=== PATIENT | female | born 1945 | race Caucasian/White ===

== ENCOUNTER 2023-11-29 02:06 | Inpatient (IN) | payer MEDICARE ==
[2023-11-29 02:52] LABS: Basophils # (A) 0.1 k/uL (0-0.2); Basophils % (A) 1 %; Eosinophils # (A) 0.3 k/uL (0-0.7); Eosinophils % (A) 5 %; HCT 48.2 % (34.0-46.0); HGB 15.1 gm/dL (11.4-16.0); Lymphocytes # (A) 1.2 k/uL (1.0-4.8); Lymphocytes % (A) 20 %; MCHC 31.4 g/dL (31.0-37.0); MCV 95.7 fL (80.0-100.0); Mean Platelet Volume 8.2; Monocytes # (A) 0.5 k/uL (0-1.0); Monocytes % (A) 8 %; Neutrophils % (A) 64 %; Platelet Count 245 k/uL (150-450); RBC 5.03 m/uL (3.80-5.40); RDW 12.8 % (11.5-15.5); WBC 6.2 k/uL (3.8-10.6)
[2023-11-29 02:56] LABS: ALT 12 U/L (4-34); AST 26 U/L (14-36); African American GFR (CKD) >90 (>60 ml/min/1.73 sqM); Albumin 4.5 g/dL (3.5-5.0); Alkaline Phosphatase 80 U/L (38-126); Anion Gap 8 mmol/L; Blood Urea Nitrogen 25 mg/dL (7-17); Calcium 10.2 mg/dL (8.4-10.2); Carbon Dioxide 24 mmol/L (22-30); Chloride 111 mmol/L (98-107); Glucose 112 mg/dL (74-99); Magnesium 2.2 mg/dL (1.6-2.3); Non-African American GFR(CKD) 83 (>60 ml/min/1.73 sqM); Partial Thromboplastin Time 22.4 sec (22.0-30.0); Potassium 3.9 mmol/L (3.5-5.1); Prothrombin Time 10.6 sec (10.0-12.5); Sodium 143 mmol/L (137-145); Total Bilirubin 0.6 mg/dL (0.2-1.3); Total Protein 7.6 g/dL (6.3-8.2)
--- NOTE | 2023-11-29 03:34 | ED ---
General Adult HPI - General Chief complaint: Chest Pain Stated complaint: Jaw pain, chest pain Time Seen by Provider: 11/29/23 02:13 Source: patient, family, RN notes reviewed, old records reviewed Mode of arrival: ambulatory Limitations: no limitations - History of Present Illness Initial comments: 78 year-old female presenting with upper chest pain and troponin. Patient denies associated dyspnea, no vomiting or diaphoresis. Patient states that she has no prior history of CAD. She states she has felt in the past that she has had intermittent episodes of atrial fibrillation. relieved with Valsalva. - Related Data Allergies Allergy/AdvReac Type Severity Reaction Status Date / Time No Known Allergies Allergy Verified 11/29/23 02:12 Review of Systems ROS Statement: Those systems with pertinent positive or pertinent negative responses have been documented in the HPI. ROS Other: All systems not noted in ROS Statement are negative. Past Medical History Past Medical History: Cancer, Hypertension Past Surgical History: Appendectomy, Bowel Resection, Joint Replacement Additional Past Surgical History / Comment(s): mastectomy colectomy General Exam Limitations: no limitations General appearance: alert, in no apparent distress Head exam: Present: atraumatic, normocephalic Eye exam: Present: normal appearance, PERRL Neck exam: Present: normal inspection. Absent: tenderness, meningismus Respiratory exam: Present: normal lung sounds bilaterally. Absent: respiratory distress, wheezes Cardiovascular Exam: Present: tachycardia, irregular rhythm GI/Abdominal exam: Present: soft. Absent: distended, tenderness Extremities exam: Present: normal inspection, normal capillary refill. Absent: pedal edema, calf tenderness Neurological exam: Present: alert, oriented X3, CN II-XII intact. Absent: motor sensory deficit Psychiatric exam: Present: normal affect, normal mood Skin exam: Present: warm, dry, intact Course Vital Signs 11/29/23 11/29/23 11/29/23 02:09 02:26 03:29 Temperature 97.7 F Pulse Rate 78 131 H 65 Respiratory 20 18 18 Rate Blood Pressure 153/77 153/81 162/93 O2 Sat by Pulse 97 96 96 Oximetry 11/29/23 04:52 Temperature Pulse Rate 58 L Respiratory 18 Rate Blood Pressure 153/82 O2 Sat by Pulse 96 Oximetry Medical Decision Making - Medical Decision Making Was pt. sent in by a medical professional or institution (, PA, MARKETING ASSISTANT MANAGER, urgent care, hospital, or long-term...) When possible be specific @ -No Did you speak to anyone other than the patient for history (EMS, parent, family, police, friend...)? What history was obtained from this source @ -No Did you review nursing and triage notes (agree or disagree)? Why? @ -I reviewed and agree with nursing and triage notes Were old charts reviewed (outside hosp., previous admission, EMS record, old EKG, old radiological studies, urgent care reports/EKG's, long-term records)? Report findings @ -No old charts were reviewed Differential Chest Pain: Stable Angina, Unstable Angina, STEMI, NSTEMI Aortic Dissection, Pneumothorax, Musculoskeletal, Esophageal Spasm GERD, Cholecystitis, Pancreatitis, Zoster, this is not meant to be an all-inclusive list. EKG interpreted by me (3pts min.). @ -Initial EKG shows atrial fibrillation with RVR, right bundle branch block, no ST segment elevation, ventricular rate of 126, QRS duration 132, QTc 380 Repeat EKG at 0323, right bundle branch block, sinus rhythm, ventricular rate of 63, GA interval 181, QRS duration 136, QTc [address] segment elevation. X-rays interpreted by me (1pt min.). @ -Chest x-ray negative for acute cardiopulmonary findings CT interpreted by me (1pt min.). @ -None done U/S interpreted by me (1pt. min.). @ -None done What testing was considered but not performed or refused? (CT, X-rays, U/S, labs)? Why? @ -None What meds were considered but not given or refused? Why? @ -None Did you discuss the management of the patient with other professionals (professionals i.e. , PA, MARKETING ASSISTANT MANAGER, lab, RT, psych nurse, social work lecturer, trial lawyer, teacher, workplace rehabilitation officer, case management coordinator)? Give summary @EM Was smoking cessation discussed for >3mins.? @ -No Was critical care preformed (if so, how long)? @ yes 35 min Were there social determinants of health that impacted care today? How? (Homelessness, low income, unemployed, alcoholism, drug addiction, transportation, low edu. Level, literacy, decrease access to med. care, intermediate, rehab)? @ -No Was there de-escalation of care discussed even if they declined (Discuss DNR or withdrawal of care, Hospice)? DNR status @ -No What co-morbidities impacted this encounter? (DM, HTN, Smoking, COPD, CAD, Cancer, CVA, ARF, Chemo, Hep., AIDS, mental health diagnosis, sleep apnea, morbi d obesity)? @ -Hypertension Was patient admitted / discharged? Hospital course, mention meds given and route, prescriptions, significant lab abnormalities, going to OR and other pertinent info. @ -78-year-old female presenting with upper chest pain and jaw pain. Patient is noted to be in atrial fibrillation with rapid ventricular response. Workup including CBC, CMP and initial troponin is negative. Patient does convert into sinus rhythm and symptoms completely resolved. She will be observed on telemetry with serial cardiac enzymes and cardiology consultation. Undiagnosed new problem with uncertain prognosis? @ -No Drug Therapy requiring intensive monitoring for toxicity (Heparin, Nitro, Insulin, Cardizem)? @ -No Were any procedures done? @ -No Diagnosis/symptom? @Chest pain, new onset atrial fibrillation Acute, or Chronic, or Acute on Chronic? @ -Acute Uncomplicated (without systemic symptoms) or Complicated (systemic symptoms)? @ -Default Side effects of treatment? @ -No Exacerbation, Progression, or Severe Exacerbation? @ -No Poses a threat to life or bodily function? How? (Chest pain, [place], [place], pneumonia, PE, COPD, DKA, ARF, appy, cholecystitis, CVA, Diverticulitis, Homicidal, Suicidal, threat to staff... and all critical care pts) @Yes, chest pain, arrhythmia - Lab Data Result diagrams: 11/29/23 02:29 11/29/23 02:29 Lab Results 11/29/23 11/29/23 11/29/23 Range/Units 02:29 02:29 02:29 WBC 6.2 (3.8-10.6) k/uL RBC 5.03 (3.80-5.40) m/uL Hgb 15.1 (11.4-16.0) gm/dL Hct 48.2 H (34.0-46.0) % MCV 95.7 (80.0-100.0) fL MCH 30.0 (25.0-35.0) pg MCHC 31.4 (31.0-37.0) g/dL RDW 12.8 (11.5-15.5) % Plt Count 245 (150-450) k/uL MPV 8.2 Neutrophils % 64 % Lymphocytes % 20 % Monocytes % 8 % Eosinophils % 5 % Basophils % 1 % Neutrophils # 4.0 (1.3-7.7) k/uL Lymphocytes # 1.2 (1.0-4.8) k/uL Monocytes # 0.5 (0-1.0) k/uL Eosinophils # 0.3 (0-0.7) k/uL Basophils # 0.1 (0-0.2) k/uL PT 10.6 (10.0-12.5) sec INR 1.0 (<1.2) APTT 22.4 (22.0-30.0) sec Sodium 143 (137-145) mmol/L Potassium 3.9 (3.5-5.1) mmol/L Chloride 111 H (98-107) mmol/L Carbon Dioxide 24 (22-30) mmol/L Anion Gap 8 mmol/L BUN 25 H (7-17) mg/dL Creatinine 0.69 (0.52-1.04) mg/dL Est GFR (CKD-EPI)AfAm >90 (>60 ml/min/1.73 sqM) Est GFR (CKD-EPI)NonAf 83 (>60 ml/min/1.73 sqM) Glucose 112 H (74-99) mg/dL Calcium 10.2 (8.4-10.2) mg/dL Magnesium 2.2 (1.6-2.3) mg/dL Total Bilirubin 0.6 (0.2-1.3) mg/dL AST 26 (14-36) U/L ALT 12 (4-34) U/L Alkaline Phosphatase 80 (38-126) U/L Troponin I (0.000-0.034) ng/mL Total Protein 7.6 (6.3-8.2) g/dL Albumin 4.5 (3.5-5.0) g/dL TSH 6.450 H (0.465-4.680) mIU/L 11/29/23 Range/Units 02:29 WBC (3.8-10.6) k/uL RBC (3.80-5.40) m/uL Hgb (11.4-16.0) gm/dL Hct (34.0-46.0) % MCV (80.0-100.0) fL MCH (25.0-35.0) pg MCHC (31.0-37.0) g/dL RDW (11.5-15.5) % Plt Count (150-450) k/uL MPV Neutrophils % % Lymphocytes % % Monocytes % % Eosinophils % % Basophils % % Neutrophils # (1.3-7.7) k/uL Lymphocytes # (1.0-4.8) k/uL Monocytes # (0-1.0) k/uL Eosinophils # (0-0.7) k/uL Basophils # (0-0.2) k/uL PT (10.0-12.5) sec INR (<1.2) APTT (22.0-30.0) sec Sodium (137-145) mmol/L Potassium (3.5-5.1) mmol/L Chloride (98-107) mmol/L Carbon Dioxide (22-30) mmol/L Anion Gap mmol/L BUN (7-17) mg/dL Creatinine (0.52-1.04) mg/dL Est GFR (CKD-EPI)AfAm (>60 ml/min/1.73 sqM) Est GFR (CKD-EPI)NonAf (>60 ml/min/1.73 sqM) Glucose (74-99) mg/dL Calcium (8.4-10.2) mg/dL Magnesium (1.6-2.3) mg/dL Total Bilirubin (0.2-1.3) mg/dL AST (14-36) U/L ALT (4-34) U/L Alkaline Phosphatase (38-126) U/L Troponin I <0.012 (0.000-0.034) ng/mL Total Protein (6.3-8.2) g/dL Albumin (3.5-5.0) g/dL TSH (0.465-4.680) mIU/L Critical Care Time Critical Care Time: Yes Total Critical Care Time: 35 Disposition Clinical Impression: Chest pain, Atrial fibrillation Disposition: ADMITTED IP TO THIS [facility] Condition: Stable Is patient prescribed a controlled substance at d/c from ED?: No Referrals: Carlos Rosas MD [Primary Care Provider] - 1-2 days Time of Disposition: 04:57
[2023-11-29] MEDS: DILTIAZEM DRIP BOLUS FROM BAG 1 MG SOLN IV ONE (04:12)
[2023-11-29] MEDS: DILTIAZEM 125 MG in SODIUM CHLORIDE 0.9% 100 ML IV SCH (04:13)
[2023-11-29] MEDS ORDERED: NALOXONE 0.4 MG/ML 1 ML VIAL IV PRN (04:53)
--- NOTE | 2023-11-29 05:38 | XR ---
EXAMINATION TYPE: XR chest 2V DATE OF EXAM: 11/29/2023 COMPARISON: NONE HISTORY: Chest pain TECHNIQUE: Frontal and lateral views of the chest are obtained. FINDINGS: There is no focal air space opacity, pleural effusion, or pneumothorax seen. Mild cardiome mary is seen. The osseous structures are intact. IMPRESSION: Mild cardiomegaly without acute pulmonary process.
[2023-11-29] MEDS: ASPIRIN 325 MG TAB PO STA ×2 (05:53→09:51)
--- NOTE | 2023-11-29 07:23 | P.HPIM ---
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 Patient blood pressure has been well-controlled lately she had history of mild arrhythmia never been diagnosed with A-fib she had mostly PVCs and PACs. She woke up around 1:00 midnight complaining of jaw pain discomfort in quite the palpitation with typical angina with heaviness and discomfort slight shortness of breath. Her drove her to the emergency department [facility] where was seen and evaluated continue having the tightness and discomfort first EKG showed partial bundle branch block with ST depression and T inversion in lateral lead shortly after her EKG showed A-fib with RVR pulse rate running around 130 beats per minutes was diagnosed with A-fib. Started on Cardizem drip but end up converting back to sinus rhythm very fast. Patient be starting on anticoagulat ion but she had atypical angina with her A-fib which is concerning will be seen cardiology and probably talk about doing heart cath before going any further for cardiac testing. Also patient noted to have quite a bit of palpitation and arrhythmia symptoms improved with Valsalva in the past successfully. Patient brought to the emergency department by her at the time was seen secure troponin was negative EKG initially showed no typical findings repeat EKG showed A-fib with RVR with pulse running around 130 bpm. Patient was started on Cardizem drip and heparin drip will admit patient to the hospital, she will be seeing cardiology continue Cardizem drip plan to do an echocardiogram keep patient n.p.o. for possible intervention CK troponin x 3 will be done. REVIEW OF SYSTEMS: CONSTITUTIONAL: Well-developed no acute respiratory distress. EYES: No icterus sclerae, no conjunctivitis. EARS, NOSE, MOUTH, THROAT, and FACE: No sore throat, lymphadenopathy, carotid bruits or deformity. RESPIRATORY: Slight shortness of breath no cough or wheezes. CARDIOVASCULAR: Positive PND orthopnea palpitation and angina. GASTROINTESTINAL: No Abd pain, Nausea or vomiting, no Diarrhea or constipation, No GI Bleed, no distention or masses. GENITOURINARY: Negative for Hematuria or UTI, no kidney stones. INTEGUMENT/BREAST: Negative for any muscular injury with mild osteoarthritis.. HEMATOLOGIC/LYMPHATIC: Negative for bleed or purpura. MUSCULOSKELTAL: Negative for Myalgia or arthralgia. NEURLOGICAL: No LOC, Sz or syncope, blurred vision dizziness or abnormality.. BEHAVIORAL/PSYCH: Negative. ENDOCRINE: Negative. PHYSICAL EXAMINATION: General Appearance: Alert, cooperative, no distress, appears stated age. Neck HEENT: Supple, no lymphadenopathy, no thyroid enlargement, no carotid bruits. Lungs: Clear to auscultation without crackles or wheezes no rhonchi, no deformity. Chest Wall: Decreased expansion with deep inspiration no tenderness and no deformity was found on exam, no costochondral pain or discomfort. Heart: Irregular rate and rhythm, S1, S2 normal, no murmur, rub or gallop. Back: Symmetric, no curvature, ROM normal, no CVA tenderness. Abdomen: Soft, non-tender, bowel sounds active all four quadrants, no masses, no organomegaly. Extremities: Extremities normal, atraumatic, no cyanosis or edema. Pulses: 2+ and symmetric. Skin: Skin color, texture, tugor normal, no rashes or lesions. Neurologic: Alert oriented x3 cranial nerves II through XII intact, no motor deficit, no abnormal balance or gait. ASSESSMENT AND PLAN: _Atypical chest pain: Patient was admitted to the hospital, consult cardiology, repeat EKG, troponin x 3 do not further testing including echocardiogram and probably stress test to be done. _New onset of A-fib with RVR: Pulse rate finally 126 bpm quite irregular patient will remain on Cardizem and probably add metoprolol she should be started on anticoagulation with Lovenox 1 mg/kg twice a day till seen cardiology she need to be switched to Eliquis 5 mg twice a day, will continue watching pulse rate. _Hypertension: Has been doing well on carvedilol will resume medication. _Hyperlipidemia: Lipid panel be done fasting and initiate statin for 90 LDL above 100. _Hyperglycemia: Hyperglycemia with no show diagnosed with diabetes A1c good underlapped continue Accu-Cheks sliding scales coverage. _Hypothyroidism: Mildly elevated TSH repeat free T4 patient thyroid testing has been normal less than 6 months ago. _History of breast cancer: Full remission doing very well no complication. _History of melanoma: Has been in remission as well she still seen at [facility] once a year. _GI prophylaxis: Will add Pepcid 20 mg daily. _DVT prophylaxis: Patient will be on anticoagulation treatment for A-fib which will be DVT prophylaxis as well. CODE STATUS: Full code. Admit patient to the inpatient status for 1-2 night. Past Medical History Past Medical History: Cancer, Hypertension Past Surgical History: Appendectomy, Bowel Resection, Joint Replacement Additional Past Surgical History / Comment(s): mastectomy colectomy Medications and Allergies Allergies Allergy/AdvReac Type Severity Reaction Status Date / Time No Known Allergies Allergy Verified 11/29/23 02:12 Physical Exam Vitals: Vital Signs Temp Pulse Resp BP Pulse Ox 11/29/23 04:52 58 L 18 153/82 96 11/29/23 03:29 65 18 162/93 96 11/29/23 02:26 131 H 18 153/81 96 11/29/23 02:09 97.7 F 78 20 153/77 97 Intake and Output 11/28/23 11/28/23 11/29/23 14:59 22:59 06:59 Other: Weight 79.379 kg Results CBC & Chem 7: 11/29/23 02:29 11/29/23 02:29 Labs: Abnormal Lab Results - Last 24 Hours (Table) 11/29/23 11/29/23 Range/Units 02:29 02:29 Hct 48.2 H (34.0-46.0) % Chloride 111 H (98-107) mmol/L BUN 25 H (7-17) mg/dL Glucose 112 H (74-99) mg/dL TSH 6.450 H (0.465-4.680) mIU/L
[2023-11-29 08:22] LABS: Basophils # (A) 0.1 k/uL (0-0.2); Basophils % (A) 1 %; Eosinophils # (A) 0.2 k/uL (0-0.7); Eosinophils % (A) 3 %; HCT 41.2 % (34.0-46.0); HGB 13.5 gm/dL (11.4-16.0); Lymphocytes # (A) 1.1 k/uL (1.0-4.8); Lymphocytes % (A) 23 %; MCH 31.3 pg (25.0-35.0); MCHC 32.7 g/dL (31.0-37.0); MCV 95.6 fL (80.0-100.0); Mean Platelet Volume 8.1; Monocytes # (A) 0.4 k/uL (0-1.0); Monocytes % (A) 8 %; Neutrophils % (A) 63 %; Platelet Count 227 k/uL (150-450); RBC 4.31 m/uL (3.80-5.40); RDW 12.5 % (11.5-15.5); WBC 4.8 k/uL (3.8-10.6)
[2023-11-29 08:38] LABS: Partial Thromboplastin Time 22.3 sec (22.0-30.0); Prothrombin Time 10.9 sec (10.0-12.5)
[2023-11-29] MEDS: HEPARIN SODIUM 1,000 UN/ML (10ML VL) IV ONE (09:05)
[2023-11-29] MEDS: HEPARIN SOD,PORK IN 0.45% NACL 25,000 UNIT in 0.45% NACL 1 250ML.BAG IV SCH (09:05)
[2023-11-29] MEDS ORDERED: NITROGLYCERIN SL TABS 0.4 MG TAB SUBLINGUAL PRN ×2 (09:40→15:12)
[2023-11-29] MEDS ORDERED: ALPRAZolam 0.5 MG TAB PO PRN (09:40)
[2023-11-29] MEDS ORDERED: ALPRAZolam 0.25 MG TAB PO PRN (09:40)
[2023-11-29] MEDS: ATORVASTATIN 80 MG TAB PO STA (10:33)
[2023-11-29] MEDS: SODIUM CHLORIDE 0.9% 1,000 ML IV SCH (10:35)
--- NOTE | 2023-11-29 11:02 | P.CRDCN ---
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 She has a past medical history of hypertension. She states that she thinks that she may have been in atrial fibrillation at 1 point but she then followed up with her PCP and had 24-hour monitor placed and no identified atrial fibrillation was found. Patient complains of jaw and neck upper chest pain that woke her from sleep. She states it was sharp and severe. She denies having any shortness of breath, no dizziness or lightheadedness, no syncopal episodes. Patient is seen today in the emergency center waiting for bed on the cardiac stepdown unit. Patient has been started on Cardizem drip. EKG right bundle branch block, T wave inversions leads III and aVF. #2 atrial fibrillation Chest x-ray: Mild cardiomegaly without acute pulmonary process. Laboratory studies: CBC, INR unremarkable. Troponin negative x 2. Potassium 3.9, BUN 25 and creatinine 0.69. TSH 6.45. Home cardiac medications: Coreg 6.25 mg twice daily Review Of Systems: At the time of my exam: CONSTITUTIONAL: Denies fever or chills. HEENT: Denies blurred vision, vision changes, or eye pain. Denies hemoptysis CARDIOVASCULAR: Denies chest pain. Denies orthopnea. Denies PND. Denies palpitations RESPIRATORY: Denies shortness of breath. GASTROINTESTINAL: Denies abdominal pain. Denies nausea or vomiting. HEMATOLOGIC: Denies bleeding disorders. GENITOURINARY: Denies any blood in urine. SKIN: Denies pruitis. Denies rash. Physical examination: Gen: This is an 78-year-old female in no acute distress VS: reviewed, blood pressure 152/84, heart rate 58, pulse ox 98% on room air. HEENT: Head is atraumatic, normocephalic. Pupils equal, round. Sclerae is anicteric. NECK: Supple. No JVD. LUNGS: Clear to auscultation. No wheezes or rhonchi. No intercostal retractions. HEART: Regular rate and rhythm. ABDOMEN: Soft No tenderness. EXTREMITIES: No pedal edema. No calf tenderness. NEUROLOGICAL: Patient is awake, alert and oriented x3. Assessment: Chest pain concerning for unstable angina Hypertension New onset A-fib with RVR, currently in sinus rhythm Plan: Resume patient's home cardiac medications Start patient on heparin drip Discontinue Cardizem drip Schedule patient for cardiac catheterization today with Dr. Garcia Obtain 2-D echocardiogram and Doppler study to assess cardiac structure and f unction Further recommendations to follow based upon clinical course Thank you kindly for this consultation. Nurse practitioner note has been reviewed, I agree with documented findings and plan of care. Patient was seen and examined. Past Medical History Past Medical History: Cancer, Hypertension Past Surgical History: Appendectomy, Bowel Resection, Joint Replacement Additional Past Surgical History / Comment(s): mastectomy colectomy Medications and Allergies Home Medications Medication Instructions Recorded Confirmed Type Ergocalciferol (Vitamin D2) 1,250 mcg PO Q14D 11/29/23 11/29/23 History [Drisdol (50,000 Iu)] carvediloL [Coreg] 6.25 mg PO BID 11/29/23 11/29/23 History Allergies Allergy/AdvReac Type Severity Reaction Status Date / Time No Known Allergies Allergy Verified 11/29/23 07:39 Physical Exam Vitals: Vital Signs Temp Pulse Resp BP Pulse Ox 11/29/23 04:52 58 L 18 153/82 96 11/29/23 03:29 65 18 162/93 96 11/29/23 02:26 131 H 18 153/81 96 11/29/23 02:09 97.7 F 78 20 153/77 97 Intake and Output 11/28/23 11/29/23 11/29/23 22:59 06:59 14:59 Other: Weight 79.379 kg Results 11/29/23 08:14 11/29/23 02:29 Cardiac Enzymes 11/29/23 11/29/23 Range/Units 02:29 02:29 AST 26 (14-36) U/L Troponin I <0.012 (0.000-0.034) ng/mL Coagulation 11/29/23 Range/Units 02:29 PT 10.6 (10.0-12.5) sec APTT 22.4 (22.0-30.0) sec CBC 11/29/23 Range/Units 02:29 WBC 6.2 (3.8-10.6) k/uL RBC 5.03 (3.80-5.40) m/uL Hgb 15.1 (11.4-16.0) gm/dL Hct 48.2 H (34.0-46.0) % Plt Count 245 (150-450) k/uL Comprehensive Metabolic Panel 11/29/23 Range/Units 02:29 Sodium 143 (137-145) mmol/L Potassium 3.9 (3.5-5.1) mmol/L Chloride 111 H (98-107) mmol/L Carbon Dioxide 24 (22-30) mmol/L BUN 25 H (7-17) mg/dL Creatinine 0.69 (0.52-1.04) mg/dL Glucose 112 H (74-99) mg/dL Calcium 10.2 (8.4-10.2) mg/dL AST 26 (14-36) U/L ALT 12 (4-34) U/L Alkaline Phosphatase 80 (38-126) U/L Total Protein 7.6 (6.3-8.2) g/dL Albumin 4.5 (3.5-5.0) g/dL Current Medications Generic Name Dose Route Start Last Admin Trade Name Freq PRN Reason Stop Dose Admin Acetaminophen 650 mg 11/29/23 04:53 Acetaminophen Tab 325 Mg Tab PO Q6HR PRN Mild Pain or Fever > 100.5 Heparin Sodium (Porcine) 0 unit 11/29/23 07:52 Heparin Sodium 1,000 Un/Ml (10ml Vl) IV PER PROTOCOL PRN Low PTT Protocol Diltiazem HCl 125 mg/ Sodium 125 mls @ 5 mls/hr 11/29/23 02:45 11/29/23 04:13 Chloride IV Not Given .Q24H JONATHAN 5 MG/HR Heparin Sodium/Sodium Chloride 250 mls @ 9.525 mls/hr 11/29/23 08:00 25,000 unit/ Sodium Chloride IV .Q24H JONATHAN Protocol 12 UNITS/KG/HR Naloxone HCl 0.2 mg 11/29/23 04:53 Naloxone 0.4 Mg/Ml 1 Ml Vial IV Q2M PRN Opioid Reversal Intake and Output 11/28/23 11/29/23 11/29/23 22:59 06:59 14:59 Other: Weight 79.379 kg 11/29/23 02:29 11/29/23 02:29
[2023-11-29] MEDS: carvediloL 6.25 MG TAB PO SCH (12:26)
[2023-11-29] MEDS ORDERED: HEPARIN SODIUM 1,000 UN/ML (10ML VL) ONE (13:42)
[2023-11-29] MEDS ORDERED: VERAPAMIL 2.5 MG/ML 2 ML AMP ONE (13:43)
[2023-11-29] MEDS: IV FLUID CONTINUATION 950 ML IV ONE (14:08)
[2023-11-29] MEDS: MIDAZOLAM 2 MG/2 ML VIAL IVP ONE (14:24)
[2023-11-29] MEDS: LIDOCAINE 1% INJ 10MG/ML (20 ML MDV) SQ ONE (14:37)
[2023-11-29] MEDS: VERAPAMIL SYRINGE (5 MG/10 ML) INTRAARTER ONE (14:38)
[2023-11-29] MEDS: HEPARIN SODIUM 1,000 UN/ML (10ML VL) IVP ONE (14:39)
[2023-11-29] MEDS ORDERED: CLOPIDOGREL 75 MG TAB ONE (14:45)
[2023-11-29] MEDS: CLOPIDOGREL 75 MG TAB PO ONE (14:46)
[2023-11-29] MEDS ORDERED: MORPHINE SULFATE 4 MG/ML SYRINGE ONE ×2 (14:47→15:09)
[2023-11-29] MEDS: MORPHINE SULFATE 4 MG/ML SYRINGE IVP ONE ×2 (14:48→15:12)
[2023-11-29] MEDS ORDERED: ENALAPRILAT 1.25 MG/ML 1 ML VIAL ONE (14:51)
[2023-11-29] MEDS ORDERED: hydrALAZINE HCL 20 MG/ML 1 ML VIAL ONE (14:51)
[2023-11-29] MEDS: ENALAPRILAT 1.25 MG/ML 1 ML VIAL IVP ONE (14:53)
[2023-11-29] MEDS: hydrALAZINE HCL 20 MG/ML 1 ML VIAL IVP ONE (14:53)
[2023-11-29] MEDS: NITROGLYCERIN 1000MCG/10ML SYRINGE INTRACORON ONE (15:02)
[2023-11-29] MEDS: IOPAMIDOL-370 100ML BTL INJ ONE ×2 (15:06→15:08)
[2023-11-29] MEDS ORDERED: NITROGLYCERIN SL TABS 0.4 MG TAB SUBLINGUAL ONE (15:10)
[2023-11-29] MEDS ORDERED: FUROSEMIDE 10 MG/ML 4 ML VIAL ONE (15:10)
[2023-11-29] MEDS ORDERED: RX INFO: IV CONTRAST WAS GIVEN 1 EACH MISC MISCELLANE PRN (15:12)
[2023-11-29] MEDS ORDERED: ATROPINE SULFATE 0.1 MG/ML 10ML SYRINGE IV PRN (15:12)
[2023-11-29] MEDS ORDERED: ZOLPIDEM 5 MG TAB PO PRN (15:12)
[2023-11-29] MEDS: NITROGLYCERIN SL TABS 0.4 MG TAB SUBLINGUAL ONE (15:12)
[2023-11-29] MEDS: FUROSEMIDE 10 MG/ML 4 ML VIAL IVP ONE (15:12)
--- NOTE | 2023-11-29 15:17 | P.PCN ---
Date of Procedure: 11/29/23 Operative Findings: CARDIAC CATHETERIZATION AND PERCUTANEOUS CORONARY INTERVENTION PERFORMING PHYSICIAN: Arslan Garcia MD, [facility] PROCEDURE PERFORMED: 1. Selective right and left coronary angiogram 2. Left heart catheterization 3. Successful stenting of first diagonal branch using 3.25 x 15 mm Xience DAVIE with an excellent angiographic results with adjunctive use of intravascular ultrasound 4. Ultrasound guided access of the right radial artery INDICATION: Acute non-ST relation myocardial infarction COMPLICATION: None APPROACH: Right radial artery LEVEL OF SEDATION: Moderate with the sedation time off 31 minutes PROCEDURE DESCRIPTION: After obtaining informed consent the patient was brought to the cardiac Animal [facility]ner. The right radial artery was cannulated using micropuncture technique under ultrasound guidance the micropuncture wire passed easily then I placed a 6 Syrian sheath at the right radial artery. After that I gave the patient 2 mg of verapamil intra-arterial. Selective right and left coronary angiogram performed using JR4 and JL 3.5 catheters. Left heart catheterization was performed using the JR4 catheter which crossed the aortic valve. After that I did intervene on the diagonal branch of the LAD. Anticoagulation was initiated using heparin with continuous ACT monitoring. I did engage the left main using JL 3.5 guide. I did wired the diagonal branch using a run-through wire. Intravascular ultrasound was performed and showed a noncalcified lesion appears to be in the range of 3 mm in diameter. I did predilated using 3 mm x 12 mm balloon before I deployed 3.25 x 15 mm stent where the stent was positioned under fluoroscopy guidance and deployed under fluoroscopy guidance. The stent was postdilated using 3.5 noncompliant balloon and subsequently 4.0 noncompliant balloon. Final angiogram showed excellent angiographic results. SELECTIVE CORONARY ANGIOGRAM: The right coronary artery: Large-caliber vessel and dominant vessel and appears to be angiographically normal Left main: Is angiographically normal The left circumflex: Large-caliber vessel nondominant vessel and also angiographically normal The left anterior descending artery: Large-caliber vessel. Is angiographically normal with gives rise into a large diagonal branch which has a tight lesion in the midportion HEMODYNAMICS: The LVEDP was about 24 mmHg with no significant gradient across aortic valve CONCLUSION: Severe disease involving a large first diagonal branch. I performed successful PCI with reduction of stenosis from 80% to 0% Elevated left-sided filling pressure POSTPROCEDURE MANAGEMENT: 1. Dual antiplatelet therapy using aspirin and Plavix for at least 12 month 2. Aggressive cholesterol control 3. Follow-up with the patient
[2023-11-29] MEDS: SODIUM CHLORIDE 0.9% 1,000 ML in EMPTY BAG 1 BAG IV SCH (15:59)
[2023-11-29 16:00] VITALS: RESP 16
--- NOTE | 2023-11-29 17:19 | CA ---
Transthoracic Echo Report Name: Catrina Casey Age: 78 Gender: F : 1945 Exam Date: 11/29/2023 15:59 Exam Location: [facility] Ht (in): 66 Wt (lb): 175 Ordering Physician: Xochitl Rodriguez Attending/Referring Phys: [id number], Jennifer Cleat Blanker Deb Lester RDCS Procedure CPT: Indications: LVF Cardiac Hx: stent Technical Quality: Fair Contrast 1: Total Dose (mL): Contrast 2: Total Dose (mL): MEASUREMENTS (Male / Female) Normal Values 2D ECHO LV Diastolic Diameter PLAX 5.6 cm 4.2 - 5.9 / 3.9 - 5.3 cm LV Systolic Diameter PLAX 3.2 cm IVS Diastolic Thickness 1.2 cm 0.6 - 1.0 / 0.6 - 0.9 cm LVPW Diastolic Thickness 1.4 cm 0.6 - 1.0 / 0.6 - 0.9 cm LV Relative Wall Thickness 0.5 RV Internal Dim ED PLAX 3.6 cm LA Systolic Diameter LX 3.5 cm 3.0 - 4.0 / 2.7 - 3.8 cm LV Diastolic Volume MOD 4C 103.9 cm??? LV Systolic Volume MOD 4C 46.2 cm??? LV Ejection Fraction MOD 4C 55.6 % LV Cardiac Index MOD 4C 1575.5 cm???/min???m??? LV Diastolic Length 4C 7.0 cm LV Systolic Length 4C 5.3 cm LV Diastolic Volume MOD 2C 76.5 cm??? LV Systolic Volume MOD 2C 28.1 cm??? LV Ejection Fraction MOD 2C 63.3 % LV Cardiac Index MOD 2C 1320.4 cm???/min???m??? LV Diastolic Length 2C 7.8 cm LV Systolic Length 2C 6.2 cm LA Volume 60.3 cm??? 18 - 58 / 22 - 52 cm??? LA Volume Index 31.0 cm???/m??? 16 - 28 cm???/m??? M-MODE Aortic Root Diameter MM 3.2 cm AV Cusp Separation MM 2.4 cm DOPPLER AV Peak Velocity 166.6 cm/s AV Peak Gradient 11.1 mmHg AI Peak Velocity 390.6 cm/s AI Peak Gradient 61.0 mmHg AI Pressure Half Time 668.6 ms MV Area PHT 2.8 cm??? Mitral E Point Velocity 71.3 cm/s Mitral A Point Velocity 66.9 cm/s Mitral E to A Ratio 1.1 MV Deceleration Time 270.5 ms TR Peak Velocity 209.5 cm/s TR Peak Gradient 17.6 mmHg Right Ventricular Systolic Press 22.6 mmHg FINDINGS Left Ventricle Left ventricular ejection fraction is estimated at 55-60 %. Mildly increased septal wall thickness. Moderately increased posterior wall thickness. Mildly increased left ventricular diastolic diameter. No obvious regional wall motion abnormalities. Right Ventricle Mild right ventricular dilatation. Right ventricular systolic pressure within normal limits. Right Atrium Normal right atrial size. No right atrial thrombus or mass seen. Left Atrium Mildly increased left atrial volume. Mildly increased left atrial area. No left atrial thrombus or mass present. Mitral Valve Structurally normal mitral valve. No evidence for mitral valve prolapse. No mitral stenosis. Trace to mild mitral regurgitation. Aortic Valve Trileaflet aortic valve. No aortic stenosis. Mild aortic regurgitation. Tricuspid Valve Structurally normal tricuspid valve. Trace to mild tricuspid regurgitation. Pulmonic Valve Structurally normal pulmonic valve. Trace pulmonic regurgitation. Pericardium Small pericardial effusion by LV Aorta Normal size aortic root and proximal ascending aorta. CONCLUSIONS Normal LV systolic function Mild aortic regurgitation Previewed by: Dr. Sergey Marie MD (Electronically Signed) Final Date: 29 November 2023 17:18
[2023-11-29] MEDS: MAG HYDROX/AL HYDROX/SIMETH 30 ML CUP PO PRN (20:25)
[2023-11-30] MEDS: HEPARIN SODIUM 1,000 UN/ML (10ML VL) IV PRN (03:47)
[2023-11-30] MEDS ORDERED: HEPARIN SODIUM,PORCINE (1 ML) 2,500 UNIT in SODIUM CHLORIDE 0.9% 250 ML IRRIGATION PRN (07:00)
[2023-11-30] MEDS ORDERED: HEPARIN SODIUM,PORCINE 10,000 UNIT in SODIUM CHLORIDE 0.9% 1,000 ML IRRIGATION PRN (07:00)
[2023-11-30 10:16] LABS: Basophils % (A) 0 %; Eosinophils # (A) 0.1 k/uL (0-0.7); Eosinophils % (A) 2 %; HCT 40.2 % (34.0-46.0); HGB 12.9 gm/dL (11.4-16.0); Lymphocytes # (A) 0.8 k/uL (1.0-4.8); Lymphocytes % (A) 13 %; MCH 30.7 pg (25.0-35.0); MCV 95.9 fL (80.0-100.0); Mean Platelet Volume 7.9; Monocytes # (A) 0.5 k/uL (0-1.0); Monocytes % (A) 8 %; Neutrophils % (A) 76 %; Platelet Count 210 k/uL (150-450); RBC 4.19 m/uL (3.80-5.40); RDW 12.6 % (11.5-15.5); WBC 6.7 k/uL (3.8-10.6)
[2023-11-30] MEDS: ACETAMINOPHEN TAB 325 MG TAB PO PRN (10:16)
[2023-11-30] MEDS: CLOPIDOGREL 75 MG TAB PO SCH (10:17)
[2023-11-30] MEDS: ASPIRIN 81 MG PO SCH (10:17)
[2023-11-30] MEDS: APIXABAN 2.5 MG TABLET PO SCH (10:19)
[2023-11-30 10:22] LABS: INR 1.1 (<1.2); Prothrombin Time 11.7 sec (10.0-12.5)
[2023-11-30 10:51] VITALS: BMI 28.0
[2023-11-30 10:55] LABS: ALT 10 U/L (4-34); AST 26 U/L (14-36); African American GFR (CKD) >90 (>60 ml/min/1.73 sqM); Albumin 3.4 g/dL (3.5-5.0); Alkaline Phosphatase 62 U/L (38-126); Anion Gap 4 mmol/L; Blood Urea Nitrogen 23 mg/dL (7-17); Calcium 8.8 mg/dL (8.4-10.2); Carbon Dioxide 24 mmol/L (22-30); Chloride 110 mmol/L (98-107); Glucose 92 mg/dL (74-99); Non-African American GFR(CKD) 83 (>60 ml/min/1.73 sqM); Potassium 3.6 mmol/L (3.5-5.1); Sodium 138 mmol/L (137-145); Total Bilirubin 0.8 mg/dL (0.2-1.3)
--- NOTE | 2023-11-30 14:12 | P.PN ---
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 She has a past medical history of hypertension. She states that she thinks that she may have been in atrial fibrillation at 1 point but she then followed up with her PCP and had 24-hour monitor placed and no identified atrial fibrillation was found. Patient complains of jaw and neck upper chest pain that woke her from sleep. She states it was sharp and severe. She denies having any shortness of breath, no dizziness or lightheadedness, no syncopal episodes. Patient is seen today in the emergency center waiting for bed on the cardiac stepdown unit. Patient has been started on Cardizem drip. EKG right bundle branch block, T wave inversions leads III and aVF. #2 atrial fibrillation Chest x-ray: Mild cardiomegaly without acute pulmonary process. Laboratory studies: CBC, INR unremarkable. Troponin negative x 2. Potassium 3.9, BUN 25 and creatinine 0.69. TSH 6.45. Home cardiac medications: Coreg 6.25 mg twice daily 11/29 Yesterday, patient underwent cardiac catheterization with Dr. Garcia which revealed severe disease involving a large first diagonal branch status post PCI. Patient has been on a heparin drip transition to oral Eliquis by attending. Echocardiogram reveals normal LV systolic function, mild aortic regurgitation. Blood pressure 121/71, heart rate 59, pulse ox 96% on room air. Repeat blood work reveals BUN 23 creatinine 0.67, hemoglobin 12.9. Physical examination: Gen: This is an 78-year-old female in no acute distress VS: reviewed HEENT: Head is atraumatic, normocephalic. Pupils equal, round. Sclerae is anicteric. LUNGS: Clear to auscultation. No wheezes or rhonchi. No intercostal retr actions. HEART: Regular rate and rhythm. EXTREMITIES: No pedal edema. No calf tenderness. NEUROLOGICAL: Patient is awake, alert and oriented x3. Assessment: Acute non-ST elevated myocardial infarction Hypertension New onset paroxysmal A-fib with RVR, currently in sinus rhythm Plan: Continue current cardiac medications Plan for triple therapy with baby aspirin, Plavix and Eliquis at 2.5 mg twice daily versus the normal dose of 5 mg twice daily Patient is cleared for discharge from cardiology and will follow-up with Dr. Garcia in 1 week. Nurse practitioner note has been reviewed, I agree with documented findings and plan of care. Patient was seen and examined. Objective - Vital Signs Vital signs: Vital Signs Temp 97.8 F 11/29/23 20:15 Pulse 58 L 11/30/23 03:45 Resp 16 11/30/23 03:45 BP 130/72 11/30/23 03:45 Pulse Ox 94 L 11/30/23 03:45 FiO2 Intake & Output 11/29/23 11/30/23 11/30/23 18:59 06:59 18:59 Intake Total 830 178.118 118 Balance 830 178.118 118 Weight 79.379 kg 78.8 kg Intake: IV 650 Intake, IV Titration 178.118 Amount Heparin Sod,Pork in 0.45% 178.118 NaCl 25,000 unit In 0.45 % NaCl 1 250ml.bag @ 12 UNITS/KG/HR 9.525 mls/hr IV .Q24H [facility] Rx#: [id number] Oral 180 118 Other: Voiding Method Toilet # Voids 2 - Labs CBC & Chem 7: 11/30/23 09:50 11/30/23 09:50 Labs: Abnormal Lab Results - Last 24 Hours (Table) 11/29/23 Range/Units 16:32 APTT 114.5 H* (22.0-30.0) sec
[2023-11-30] MEDS: APIXABAN 5 MG TAB PO SCH (15:02)
[2023-11-30 16:35] VITALS: BP 118/66; PULSE 58; TEMP 97.6
[2023-11-30 16:46] LABS: Chol/HDL Ratio 2.05 Ratio; LDL Cholesterol,Calculated 59.3 mg/dL (0.0-131.0)
[2023-11-30] MEDS ORDERED: ATORVASTATIN 80 MG TAB PO SCH (21:00)
--- NOTE | 2023-12-01 06:19 | P.DS ---
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 Patient blood pressure has been well-controlled lately she had history of mild arrhythmia never been diagnosed with A-fib she had mostly PVCs and PACs. She woke up around 1:00 midnight complaining of jaw pain discomfort in quite the palpitation with typical angina with heaviness and discomfort slight shortness of breath. Her drove her to the emergency department [facility] where was seen and evaluated continue having the tightness and discomfort first EKG showed partial bundle branch block with ST depression and T inversion in lateral lead shortly after her EKG showed A-fib with RVR pulse rate running around 130 beats per minutes was diagnosed with A-fib. Started on Cardizem drip but end up converting back to sinus rhythm very fast. Patient be starting on anticoagula tion but she had atypical angina with her A-fib which is concerning will be seen cardiology and probably talk about doing heart cath before going any further for cardiac testing. Also patient noted to have quite a bit of palpitation and arrhythmia symptoms improved with Valsalva in the past successfully. Patient brought to the emergency department by her at the time was seen secure troponin was negative EKG initially showed no typical findings repeat EKG showed A-fib with RVR with pulse running around 130 bpm. Patient was started on Cardizem drip and heparin drip will admit patient to the hospital, she will be seeing cardiology continue Cardizem drip plan to do an echocardiogram keep patient n.p.o. for possible intervention CK troponin x 3 will be done. 11/30/2023: Patient was seen cardiology yesterday with conclusion with all findings as this is non-ST GA specially with a change in EKG however troponin continued to be negative with the significant change she had going to the Engineer/Conductor found to have normal heart function with ejection fraction but she had severe stenosis of the first diagonal coronary artery ended up having angioplasty and stent placement successfully while she is having a procedure during angioplasty she developed to have great clinical angina with chest pain across both side of her chest wall significantly improved after angioplasty done. Patient rested comfortably afterward had no complications overnight medication will change and the patient is doing well today and is okay with cardiology hopefully patient can be discharged home today. REVIEW OF SYSTEMS: CONSTITUTIONAL: Well-developed no acute respiratory distress. EYES: No icterus sclerae, no conjunctivitis. EARS, NOSE, MOUTH, THROAT, and FACE: No sore throat, lymphadenopathy, carotid bruits or deformity. RESPIRATORY: Slight shortness of breath no cough or wheezes. CARDIOVASCULAR: Positive PND orthopnea palpitation and angina. GASTROINTESTINAL: No Abd pain, Nausea or vomiting, no Diarrhea or constipation, No GI Bleed, no distention or masses. GENITOURINARY: Negative for Hematuria or UTI, no kidney stones. INTEGUMENT/BREAST: Negative for any muscular injury with mild osteoarthritis.. HEMATOLOGIC/LYMPHATIC: Negative for bleed or purpura. MUSCULOSKELTAL: Negative for Myalgia or arthralgia. NEURLOGICAL: No LOC, Sz or syncope, blurred vision dizziness or abnormality.. BEHAVIORAL/PSYCH: Negative. ENDOCRINE: Negative. PHYSICAL EXAMINATION: General Appearance: Alert, cooperative, no distress, appears stated age. Neck HEENT: Supple, no lymphadenopathy, no thyroid enlargement, no carotid bruits. Lungs: Clear to auscultation without crackles or wheezes no rhonchi, no deformity. Chest Wall: Decreased expansion with deep inspiration no tenderness and no deformity was found on exam, no costochondral pain or discomfort. Heart: Irregular rate and rhythm, S1, S2 normal, no murmur, rub or gallop. Back: Symmetric, no curvature, ROM normal, no CVA tenderness. Abdomen: Soft, non-tender, bowel sounds active all four quadrants, no masses, no organomegaly. Extremities: Extremities normal, atraumatic, no cyanosis or edema. Pulses: 2+ and symmetric. Skin: Skin color, texture, tugor normal, no rashes or lesions. Neurologic: Alert oriented x3 cranial nerves II through XII intact, no motor deficit, no abnormal balance or gait. ASSESSMENT AND PLAN: _Atypical chest pain: Patient was admitted to the hospital, consult cardiology, repeat EKG, troponin x 3 do not further testing including echocardiogram and probably stress test to be done. _Non-ST myocardial infarction: No significant change in EKG with troponin was negative. Patient ended up going to the Engineer/Conductor and had an angioplasty and stent placement of the first diagonal. _Coronary artery disease with significant blockage of the first diagonal coronary artery post angioplasty and stent placement, patient be continued s econdary prevention was started on antiplatelet agent with Plavix, higher dose of statin with atorvastatin 80 mg daily and will be still on Coreg 6.25 mg twice a day. _New onset of A-fib with RVR: Pulse rate finally 126 bpm quite irregular she converted back to sinus rhythm very fast she is back on Coreg patient will be initiated Eliquis 5 mg twice a day. _Hypertension: Has been doing well on carvedilol and if able to tolerate smaller dose of ARB with losartan 25 to 50 mg will be beneficial. _Hyperlipidemia: Without angioplasty atorvastatin will be up to 80 mg daily. _Hyperglycemia: Will address with the patient again if she is not against it can benefit from SGLT2 product with Tradjenta or Jardiance. _Hypothyroidism: Mildly elevated TSH repeat free T4 patient thyroid testing has been normal less than 6 months ago. _History of breast cancer: Full remission doing very well no complication. _History of melanoma: Has been in remission as well she still seen at [facility] once a year. CODE STATUS: Full code. The patient is stable and doing well can be discharged home today. Hospital course: Patient admitted to the hospital on 11/2023 with complaint of chest pain and jaw pain with not feeling well with palpitation. At the emergency department found with first EKG to have slight ST depression with inverted T waves in the lateral lead shortly after developed to have A-fib with rapid ventricular response around 130 beats per minutes. This converted very fast into sinus rhythm on Cardizem drip. Patient was started on heparin drip as well. Her CK troponin was negative with a significant change in EKG cardiology ended up taking patient to the Engineer/Conductor and found to have very tight lesion in the first diagonal was difficult procedure but ended up having an angioplasty and stent placement in the site. While she is having her procedure will not have significant typical anginal pain in the middle of her chest radiating toward both arms. Following procedure felt very well did not have any major complication. No further A-fib from that point on. Patient ended up starting on antiplatelet agent for her post angioplasty and stent and also needed to start notable anticoagulation with Eliquis initially 5 mg twice a day then drop the dose down to 2.5 mg twice a day. With her secondary prevention lipid management was increased with her atorvastatin up to 80 mg daily. Patient is very stable the following day on 11/30/2023 and will be discharged home. Time spent on discharging patient was over 32 minutes. Patient Condition at Discharge: Stable Plan - Discharge Summary New Discharge Prescriptions: New Atorvastatin [Lipitor] 80 mg PO HS #90 tab Aspirin 81 mg PO DAILY tab Apixaban [Eliquis] 2.5 mg PO DAILY #180 tab Nitroglycerin Sl Tabs [Nitrostat] 0.4 mg SUBLINGUAL Q5M PRN #25 tab PRN Reason: Chest Pain Clopidogrel [Plavix] 75 mg PO DAILY #90 tab Continue carvediloL [Coreg] 6.25 mg PO BID Ergocalciferol (Vitamin D2) [Drisdol (50,000 Iu)] 1,250 mcg PO Q14D Discharge Medication List Ergocalciferol (Vitamin D2) [Drisdol (50,000 Iu)] 1,250 mcg PO Q14D 11/29/23 [History] carvediloL [Coreg] 6.25 mg PO BID 11/29/23 [History] Apixaban [Eliquis] 2.5 mg PO DAILY #180 tab 11/30/23 [Rx] Aspirin 81 mg PO DAILY tab 11/30/23 [Rx] Atorvastatin [Lipitor] 80 mg PO HS #90 tab 11/30/23 [Rx] Clopidogrel [Plavix] 75 mg PO DAILY #90 tab 11/30/23 [Rx] Nitroglycerin Sl Tabs [Nitrostat] 0.4 mg SUBLINGUAL Q5M PRN #25 tab 11/30/23 [Rx] Follow up Appointment(s)/Referral(s): Arslan Garcia MD [STAFF PHYSICIAN] - 1 Week Carlos Rosas MD [Primary Care Provider] - 1 Week Discharge Disposition: HOME SELF-CARE
== END 2023-11-30 17:54 | disposition home or self-care (01) | DRG 322 ==
LOC: EC 02:06 → 3SCARD 04:54 → OBSVTOIN 11-30 08:02
PROVIDERS: ADMIT Internal Medicine Geriatric Medicine; ATTEND Internal Medicine Geriatric Medicine
PROC: 027034Z Dilation of Coronary Artery, One Artery with Drug-eluting Intraluminal Device, Percutaneous Approach (ICD-10-PCS; principal; 2023-11-29 15:35)
PROC: 4A023N7 Measurement of Cardiac Sampling and Pressure, Left Heart, Percutaneous Approach (ICD-10-PCS; 2023-11-29 15:35)
PROC: B2111ZZ Fluoroscopy of Multiple Coronary Arteries using Low Osmolar Contrast (ICD-10-PCS; 2023-11-29 15:35)
PROC: B240ZZ3 Ultrasonography of Single Coronary Artery, Intravascular (ICD-10-PCS; 2023-11-29 15:35)
DX: I21.4 Non-ST elevation (NSTEMI) myocardial infarction (principal); I25.110 Atherosclerotic heart disease of native coronary artery with unstable angina pectoris; I48.0 Paroxysmal atrial fibrillation; I11.9 Hypertensive heart disease without heart failure; E03.9 Hypothyroidism, unspecified; I45.10 Unspecified right bundle-branch block; E78.5 Hyperlipidemia, unspecified; I49.3 Ventricular premature depolarization; I49.1 Atrial premature depolarization; M19.90 Unspecified osteoarthritis, unspecified site; R73.9 Hyperglycemia, unspecified; I35.1 Nonrheumatic aortic (valve) insufficiency; Z96.653 Presence of artificial knee joint, bilateral; Z85.820 Personal history of malignant melanoma of skin; Z85.3 Personal history of malignant neoplasm of breast; Z90.10 Acquired absence of unspecified breast and nipple; Z90.49 Acquired absence of other specified parts of digestive tract; Z79.899 Other long term (current) drug therapy
CPT/HCPCS: 36415; 71046; 76937; 80053; 80061; 83735; 84443; 84484; 85025; 85610; 85730; 92978; 93005; 93306; 93458; 96365; 96366; 99291